=== PATIENT | male | born 1955 | race Caucasian/White ===

== ENCOUNTER 2023-10-03 05:56 | Day surgery (SDC) | payer MEDICARE ==
[~2023-10-03 05:56] MED LIST: ACETAMINOPHEN TAB 500 MG TAB PO PRN; HEPARIN SODIUM,PORCINE 5,000 UNIT/ML 1 ML VIAL SQ PRN; Pre Op ABX Message 1 EACH MISC MISCELLANE ONE
[2023-10-03] MEDS ORDERED: LACTATED RINGERS 1,000 ML IV SCH (06:17)
[2023-10-03] MEDS ORDERED: DEXAMETHASONE SOD PHOSPHATE 4 MG/ML 1 ML VIAL IV ONE (06:17)
[2023-10-03] MEDS ORDERED: ONDANSETRON 4 MG/2 ML VIAL IVP ONE (06:17)
[2023-10-03] MEDS ORDERED: MIDAZOLAM 2 MG/2 ML VIAL IV PRN (07:00)
[2023-10-03] MEDS ORDERED: HYDROmorphone 0.5 MG/0.5 ML SYRINGE IVP PRN (07:00)
[2023-10-03 07:03] LABS: HCT 48.2 % (39.0-53.0); HGB 16.3 gm/dL (13.0-17.5); MCH 30.6 pg (25.0-35.0); MCHC 33.7 g/dL (31.0-37.0); MCV 90.7 fL (80.0-100.0); Mean Platelet Volume 7.2; Platelet Count 194 k/uL (150-450); RBC 5.31 m/uL (4.30-5.90); RDW 12.7 % (11.5-15.5); WBC 4.1 k/uL (3.8-10.6)
[2023-10-03] MEDS ORDERED: BUPIVACAINE (PF) 0.25% 30 ML VIAL SQ ONE ×2 (07:22)
[2023-10-03] MEDS ORDERED: fentaNYL (PF) 50 MCG/ML 2 ML AMP ONE (07:23)
[2023-10-03] MEDS ORDERED: ceFAZolin 1,000 MG VIAL ONE (07:23)
[2023-10-03] MEDS ORDERED: ePHEDrine 50 MG/ML 1 ML VIAL ONE (07:23)
[2023-10-03] MEDS ORDERED: SODIUM CHLORIDE 0.9% 100 ML BAG ONE (07:23)
[2023-10-03] MEDS ORDERED: LIDOCAINE 1% INJ 10MG/ML (20 ML MDV) ONE (07:23)
[2023-10-03] MEDS ORDERED: MIDAZOLAM 2 MG/2 ML VIAL ONE (07:23)
[2023-10-03] MEDS ORDERED: PROPOFOL 10 MG/ML 20 ML VIAL IV ONE (07:23)
--- NOTE | 2023-10-03 07:26 | P.GSHP ---
History of Present Illness H&P Date: 10/03/23 Chief Complaint: posterior neck sebaceous cyst 67-year-old male here for excision posterior neck mass. Likely sebaceous cyst. Increasing in size last 8 years. Mild pain. No drainage. Past Medical History Past Medical History: No Reported History History of Any Multi-Drug Resistant Organisms: None Reported Past Surgical History: Hernia Repair Additional Past Surgical History / Comment(s): colonoscopy, Past Anesthesia/Blood Transfusion Reactions: No Reported Reaction Smoking Status: Former smoker - Past Family History Father Family Medical History: Cancer Additional Family Medical History / Comment(s): prostate Mother Family Medical History: Cancer Medications and Allergies Home Medications Medication Instructions Recorded Confirmed Type No Known Home Medications 09/27/23 09/27/23 History Allergies Allergy/AdvReac Type Severity Reaction Status Date / Time No Known Allergies Allergy Verified 09/27/23 08:35 Surgical - Exam Vital Signs Temp Pulse Resp BP Pulse Ox 97.2 F L 60 16 119/75 93 L 10/03/23 06:24 10/03/23 06:24 10/03/23 06:24 10/03/23 06:24 10/03/23 06:24 Physical exam: General: Well-developed, well-nourished HEENT: Normocephalic, sclerae nonicteric, right posterior neck for by 4.5 cm sebaceous cyst Abdomen: Nontender, nondistended Extremities: No edema Neuro: Alert and oriented Results - Labs 10/03/23 06:33 Assessment and Plan (1) Neck mass Narrative/Plan: 67-year-old male with posterior neck mass. We'll proceed with surgical excision. Risks of bleeding, infection, scarring, recurrence reviewed. Patient understands and wishes to proceed. Current Visit: Yes Status: Acute Code(s): R22.1 - LOCALIZED SWELLING, MASS AND LUMP, NECK SNOMED Code(s): 410012783
[2023-10-03] MEDS ORDERED: SODIUM CHLORIDE 0.9% 100 ML with ceFAZolin 2,000 MG IV ONE ×2 (07:28)
[2023-10-03] MEDS ORDERED: HYDROcodone/APAP 5-325MG 1 EACH TAB PO PRN (08:40)
[2023-10-03] MEDS ORDERED: NALOXONE 0.4 MG/ML 1 ML VIAL IV PRN (08:40)
--- NOTE | 2023-10-03 08:44 | P.OP ---
Date of Procedure: 10/03/23 Procedure(s) Performed: PREOPERATIVE DIAGNOSIS: Posterior neck mass POSTOPERATIVE DIAGNOSIS: Posterior neck sebaceous cyst PROCEDURE: Excision posterior neck mass, intermediate closure SURGEON: Susan EBL: 5 mL ANESTHESIA: Gen. COMPLICATIONS: None OPERATIVE PROCEDURE: Patient place in the left cubitus position. Elliptical incision made overlying the posterior neck mass after the neck was prepped and draped sterilely. The mass was excised using both sharp dissection and cautery. This appeared consistent with a large sebaceous cyst. This was not ruptured. This was sent to pathology. Subcutaneous tissues were irrigated. No bleeding was seen. Subcutaneous layer was closed using interrupted 3-0 Vicryl sutures. Skin was closed using absorbable running 4-0 Monocryl subcuticular suture. Skin glue and sterile dressings applied DISPOSITION: Stable to recovery room
[2023-10-03 08:55] VITALS: TEMP 97.4
[2023-10-03 10:34] VITALS: BP 118/64; PULSE 79; RESP 16
== END 2023-10-03 10:48 | disposition home or self-care (01) ==
LOC: OR 05:56
PROVIDERS: ATTEND Surgery
DX: L72.0 Epidermal cyst (principal); L72.3 Sebaceous cyst; R22.1 Localized swelling, mass and lump, neck; Z87.891 Personal history of nicotine dependence; Z80.42 Family history of malignant neoplasm of prostate; Z98.890 Other specified postprocedural states
CPT/HCPCS: 88304; 85027; 21555; 11400; J2250; J1644; J1100; J0690; J2001; J3010; J2704; J0665